=== PATIENT | male | born 1960 | race Caucasian/White ===

== ENCOUNTER → 2016-10-18 | Outpatient (CLI) | payer OTHER ==
[~2016-10-18] MED LIST: AMOXICILLIN PO; MULTI VITAMIN1 EACH PO; PERCOCET 10/31 UDTA1 PO; ZESTRIL10 MG PO
--- NOTE | ~2016-10-18 | CR63 ---
[facility] A Service of [facility] RADIOLOGY TEXT RESULTS PATIENT: LATOYA LIU LOCATION: [facility] : 60 UNIT #: [id number] AGE: [address]: Martin Pires MD SEX: M ORDER DR: [id number] [facility] [address] [place], [place] [address] [id number] O MR#: [id number] Acc #: [id number] NAME: LATOYA LIU : 1960 SEX: M STUDY DATE/TIME: 10/18/2016 16:40 UNIT: [facility] ROOM: STUDY DESCRIPTION: CR Chest 2 View Attending Physician: Martin Pires M.D. Referring Physician: Martin Pires M.D. Ordering Physician: Martin Pires M.D. Primary Care Physician: Martin Pires M.D. MEDICAL IMAGING REPORT This report is preliminary unless electronic signature is present EXAM PA and lateral chest HISTORY Shortness of air, cough and congestion for 2 months. COMPARISON STUDIES None. FINDINGS PA and lateral chest views obtained. Heart size and vascularity are normal. Lungs are clear. Bones are unremarkable. IMPRESSION No active disease. Dictated by... Seven Cabral M.D. THIS IS AN ELECTRONICALLY VERIFIED REPORT Seven Cabral M.D. at 10/19/2016 10:40 PM FEL/pcl TD: 10/18/2016 20:34 JOB #: [id number] MEDICAL IMAGING REPORT Page 1 of 1 COPY
== END | disposition home or self-care (01) ==
LOC: CRAD 16:28
DX: R06.02 Shortness of breath (principal)
CPT/HCPCS: 71020

== ENCOUNTER 2017-03-10 18:41 | Emergency (ER) | payer OTHER ==
[~2017-03-10] VITALS: Ht 180.3 cm; Wt 113.4 kg
--- NOTE | ~2017-03-10 | CT4 ---
[facility] A Service of [facility] RADIOLOGY TEXT RESULTS PATIENT: LATOYA LIU LOCATION: [facility] : 60 UNIT #: [id number] AGE: [address]: Jarad Land MD SEX: M ORDER DR: [id number] [facility] [address] [place], [place] [address] [id number] MR#: [id number] Acc #: [id number] NAME: LATOYA LIU : 1960 SEX: M STUDY DATE/TIME: 03/10/2017 21:26 UNIT: [facility] ROOM: STUDY DESCRIPTION: CT Abd and Pelv Wo Cont Attending Physician: Jarad Land M.D. Ordering Physician: Jarad Land M.D. Primary Care Physician: Maricruz Pires M.D. MEDICAL IMAGING REPORT This report is preliminary unless electronic signature is present EXAM CT scan of the abdomen and pelvis without contrast 03/10/2017 HISTORY Left flank pain and groin pain beginning 03/09/2017. Evaluate for obstructing renal calculus. TECHNIQUE Spiral CT was performed through the abdomen and pelvis without oral or intravenous contrast administration using renal stone protocol. This CT examination was performed with one or more of the following radiation dose reduction techniques: automatic exposure control, adjustment of mA and/or kV according to patient size, and iterative reconstruction. FINDINGS ABDOMEN: There is no obstructing renal or ureteral calculus. The visualized liver, spleen, pancreas, gallbladder and biliary tree and adrenal glands are normal. PELVIS: The gut, mesenteric and le structures are normal. There is no free fluid in the abdomen or pelvis. IMPRESSION No obstructing renal or ureteral calculus. Dictated by... Deo Mcintyre M.D. THIS IS AN ELECTRONICALLY VERIFIED REPORT Deo Mcintyre M.D. at 03/11/2017 2:22 PM LUCA/john [facility] A Service of [facility] RADIOLOGY TEXT RESULTS PATIENT: LATOYA LIU LOCATION: [facility] : 60 UNIT #: [id number] AGE: [address]: Jarad Land MD SEX: M ORDER DR: TD: 03/11/2017 13:12 JOB #: [id number] MEDICAL IMAGING REPORT Page 1 of 1 COPY
[2017-03-10 19:32] LABS: BASOPHIL# 0.1 X10e3 (0-0.3); BASOPHIL% 0.8 % (0-2.5); EOSINOPHIL# 0.4 X10e3 (0-0.7); EOSINOPHIL% 4.5 % (0.0-7.0); HEMATOCRIT 45.3 % (38.0-50.0); HEMOGLOBIN 15.4 gm/dL (13.0-16.0); LYMPHOCYTE% 25.2 % (17.0-45.0); MEAN CELL VOLUME 94.7 FL (83-96); MEAN CORPUSCULAR HEMOGLOBIN 32.3 PG (28-34); MEAN CORPUSCULAR HGB CONC 34.1 g/dL (30-36); MONOCYTE# 0.6 X10e3 (0-1.0); MONOCYTE% 7.9 % (3.0-12.0); NEUTROPHIL# 4.8 X10e3 (1.5-7.1); NEUTROPHIL% 61.6 % (40-75); PLATELET COUNT 196 X10e3 (140-420); RED BLOOD COUNT 4.79 X10e (3.90-5.60); RED CELL DISTRIBUTION WIDTH 13.5 % (11.0-15.5); WHITE BLOOD COUNT 7.8 X10e3 (4.0-10.5)
[2017-03-10 19:37] LABS: DIFF IND NO
[2017-03-10 20:03] LABS: ALBUMIN SERUM 4.2 g/dL (3.5-5.0); BILIRUBIN, DIRECT 0.1 mg/dL (0.0-0.2); BILIRUBIN,INDIRECT 0.3 mg/dL (0.0-0.9); BILIRUBIN,TOTAL 0.4 mg/dL (0.2-2.0); CREATININE SERUM 0.9 mg/dL (0.6-1.4); GLOM FILT RATE Estimated 95.1 mL/min (>60); POTASSIUM 3.5 mmol/L (3.5-5.1); PROTEIN TOTAL SERUM 6.7 g/dL (6.0-8.3)
[2017-03-10 21:46] LABS: URINE SOURCE CLEAN CATCH
[2017-03-10 21:52] LABS: URINE APPEARANCE CLEAR; URINE BILIRUBIN NEG (NEG); URINE BLOOD NEG (NEG); URINE COLOR YELLOW; URINE GLUCOSE NEG (NEG); URINE KETONE NEG (NEG); URINE LEUKOCYTE ESTERASE NEG (NEG); URINE NITRATE NEG (NEG); URINE PH 6.5 (5-8); URINE PROTEIN NEG (NEG); URINE SPECIFIC GRAVITY 1.015 (1.003-1.035)
[2017-03-10 22:01] LABS: CULTURE INDICATED? NO
== END 2017-03-10 23:05 | disposition home or self-care (01) ==
LOC: CED 18:41
DX: S39.012A Strain of muscle, fascia and tendon of lower back, initial encounter (principal); I10 Essential (primary) hypertension; F17.210 Nicotine dependence, cigarettes, uncomplicated; X58.XXXA Exposure to other specified factors, initial encounter
CPT/HCPCS: 74176; 80048; 80076; 81003; 83690; 85025; 96361; 96374; 96375; 99284; J1885; J2405